=== PATIENT | male | born 1955 | race Caucasian/White ===

== ENCOUNTER → 2016-11-05 | Outpatient (CLI) | payer BC ==
--- NOTE | 2016-11-05 14:37 | US ---
EXAMINATION TYPE: US scrotum with doppler. Grayscale and color Doppler Duplex imaging performed of prem ramey scrotum. DATE OF EXAM: 11/05/2016 COMPARISON: NONE CLINICAL HISTORY: Swelling N50.8. 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 EXAM MEASUREMENTS: TESTICLES: Right Testicle: 5.7 x 2.4 x 3.3 cm Left Testicle: 4.6 x 2.4 x 3.2 cm EPIDIDYMIS HEAD: Right Epididymis: 1.3 x 0.9 cm Left Epididymis: not seen cm Doppler performed to assess for testicular vascularity; good bilateral color flow and waveforms are s een. There is no evidence of testicular torsion. Presence of hydroceles: bilaterally Presence of varicoceles: bilaterally, left greater than right IMPRESSION: 1. NORMAL INTRINSIC TESTICLES. 2. BILATERAL HYDROCELES. 3. BILATERAL VARICOCELES, LEFT GREATER THAN RIGHT.
== END | disposition home or self-care (01) ==
LOC: RADUSWWP 13:32
PROVIDERS: ATTEND Internal Medicine
DX: N43.3 Hydrocele, unspecified (principal); I86.1 Scrotal varices
CPT/HCPCS: 76870; 93975